=== PATIENT | male | born 1990 | race Caucasian/White ===

== ENCOUNTER 2020-06-30 07:54 | Day surgery (SDC) | payer BC ==
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
[~2020-06-30] VITALS: Ht 185.4 cm; Wt 74.8 kg
--- NOTE | ~2020-06-30 | OP ---
PATIENT NAME: ALBERTA RUST MEDICAL RECORD: [id number] :89 LOCATION:[facility] ADMISSION DATE: SURGEON: IKE BEASLEY MD DATE OF OPERATION: 06/30/2020 PREOPERATIVE DIAGNOSIS: Severely displaced nasal fracture. POSTOPERATIVE DIAGNOSIS: Severely displaced nasal fracture. PROCEDURE: Closed reduction of nasal fracture. SURGEON: Ike Beasley MD ANESTHESIA: General anesthesia with TIVA. NASAL PACKING: None. SPLINT: Summit splint externally. COMPLICATIONS: None. DISPOSITION: Recovery, stable. DESCRIPTION OF PROCEDURE: He was brought to the operating room and placed in supine position, sedated by anesthesia. The nose was examined. He had really severe C-shaped deformity with the nose to the left and the right septal deviation because the tip was so far to the left. Nose decongested with Afrin and then a [place] elevator on the right side of the nose. Digital pressure on the left side. It is fairly difficult, fracture was not that old, but fairly difficult to reduce, but once it closed, I did straighten up into the midline, most of the septal deviation, but not all of it went away. Outfracture the inferior turbinate a little bit there to get a little bit of airway. Septum is intact with no hematoma. Once the nose was really straight, it was cleaned with alcohol. Steri-Strips and Mastisol were applied and a [place] splint was cut to size and placed. He was awakened and transported to recovery in good condition. No complications. 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
[~2020-06-30 07:54] MED LIST: HYDROCODON-ACE1 EAC7 PO; ZITHROMAX250 MG PO
[2020-06-30 09:20] VITALS: BP 117/66; Ht 185.4 cm; Wt 74.8 kg
== END 2020-06-30 13:45 | disposition home or self-care (01) ==
LOC: D.OPS 07:54
PROVIDERS: ATTEND Otolaryngology
DX: S02.2XXA Fracture of nasal bones, initial encounter for closed fracture (principal); X58.XXXA Exposure to other specified factors, initial encounter